=== PATIENT | female | born 1970 | race Caucasian/White ===

== ENCOUNTER → 2018-01-08 09:27 | Outpatient (CLI) | payer OTHER, SELFPAY ==
--- NOTE | 2018-01-08 09:30 | BI_ITS ---
MAMMOGRAPHY - BILATERAL SCREENING REASON FOR EXAM: Female, 47 years old. Routine annual screening examination. PERTINENT HISTORY: Grandmother with breast cancer. Remote left excisional breast biopsy. TECHNIQUE: Digital bilateral breast vu (3D mammographic acquisition) in the CC and MLO projections. 2-D mediolateral oblique (MLO) and craniocaudad (CC) views of both breasts were obtained. CAD: Full Field Digital Mammography with Computer Added Detection was performed. COMPARISON: Comparison is made with prior study dated November 30, 2015 and July 31, 2014. FINDINGS: Breast Composition: There are scattered areas of fibroglandular density. Stable appearance of the architectural distortion and retraction of the left nipple in keeping with prior left excisional breast biopsy. Stable asymmetry of breast tissue were more breast tissue is seen in the right breast as compared to the right side. No other significant abnormalities are identified. There has been no significant change since the prior study. BI/SCREENING MAMM (CAD), BILAT IMPRESSION: Stable bilateral screening mammogram. Yearly follow-up mammogram recommended. (A) ASSESSMENT CATEGORY: BIRADS Category 2: Benign. A letter regarding these results will be sent to the patient by the facility within 30 days. Approximately 10% of breast cancers are not detected by mammography. A normal mammogram should not delay biopsy of a clinically suspicious abnormality. [id number] Electronically Signed: Bernabe Garcia MD at 11:21 EDT Tel [phone], Service support ,
== END ==
PROVIDERS: Family Provider Family Medicine; PCP Family Medicine; Visit Provider Obstetrics & Gynecology
DX: Z12.31 Encounter for screening mammogram for malignant neoplasm of breast (principal)
CPT/HCPCS: 77063; 77067

== ENCOUNTER → 2018-10-01 11:20 | Outpatient (CLI) | payer OTHER, SELFPAY ==
[2018-10-01 13:39] LABS: Hematocrit 45.1 % (37-47); Hemoglobin 14.9 g/dl (12.0-15.0); Mean Corpuscular Hgb 29.9 pg (27.0-32.0); Mean Corpuscular Volume 90.4 fL (81-99); Mean Platelet Vol. 10.4 fl (6.2-12.0); Platelet Count 272 K/mm3 (150-450); RBC Distribution Width CV 13.7 % (11.6-14.6); RBC Distribution Width SD 45.1 fl (35.1-43.9); Red Blood Count 4.99 M/mm3 (4.2-5.4); Scan Indicated on CBC? Y/N NO; White Blood Count 9.7 K/mm3 (4.4-11.0)
[2018-10-01 13:57] LABS: hCG Titer Quant., Serum < 1 mIU/mL (<9 non-preg)
[2018-10-01 14:03] LABS: Follicle Stimulating Hormone 9.1 mIU/mL; Luteinizing Hormone 4.5 mIU/mL; T4 Free Direct 0.89 ng/dL (0.76-1.46); Thyroid Stim Hormone (TSH) 4.97 uIU/mL (0.358-3.74)
== END ==
PROVIDERS: Visit Provider Obstetrics & Gynecology
DX: N93.9 Abnormal uterine and vaginal bleeding, unspecified (principal); N95.0 Postmenopausal bleeding
CPT/HCPCS: 36415; 83001; 83002; 84439; 84443; 84702; 85027

== ENCOUNTER → 2018-10-18 13:28 | Outpatient (CLI) | payer OTHER, SELFPAY ==
--- NOTE | 2018-10-18 11:45 | EMB_PTH ---
PATIENT: KAY SALAZAR LOC: [facility] U#:[id number] AGE/SX: 55/F ROOM: RE10/18/[address]: Dr. Bianca Carrero MD : 1970 BED: DIS: SPEC #: [id number] RECD: 10/18/18 13:19 STATUS: CALISTA PETRA #: [id number] MORA: 10/18/18 11:[address]: Bianca Carrero DEPT: SURGICAL PATHOLOGY RECD BY: Thanh Sultana Tissues: Endometrium, NOS Procedures: Surgery Specimen Level IV HEADER OPERATION: Endometrial biopsy PRE-OP DIAGNOSIS: LMP 09/08; prolonged irregular bleeding TISSUE SUBMITTED: Endometrial biopsy MICROSCOPIC DIAGNOSIS Endometrial biopsy: Simple endometrial hyperplasia without atypia. DIONNE:rene 10/19/18 MICROSCOPIC DESCRIPTION Slides are reviewed. GROSS DESCRIPTION Received in fixative is one container labeled with the patient's name and designated EMB. The specimen consists of multiple irregular fragments of james-pink soft tissue that in aggregate measure 2.5 x 2 x 0.2 cm. The specimen is totally submitted in one cassette. / DIONNE:rene 10/18/18 TC:5 CPT: 98909
== END ==
PROVIDERS: Referring Provider Obstetrics & Gynecology; Visit Provider Obstetrics & Gynecology
DX: N85.00 Endometrial hyperplasia, unspecified (principal)
CPT/HCPCS: 88305

== ENCOUNTER 2019-01-24 07:45 | Day surgery (SDC) | payer OTHER, SELFPAY ==
--- NOTE | 2019-01-21 11:50 | EKG12_ITS ---
Test Reason : PRE OP Blood Pressure : / mmHG Vent. Rate : 076 BPM Atrial Rate : 076 BPM P-R Int : 134 ms QRS Dur : 080 ms QT Int : 370 ms P-R-T Axes : 043 067 025 degrees QTc Int : 416 ms Normal sinus rhythm Normal ECG Confirmed by ANUEL CH, GERARDO ([id number]), business editor STEFF VELAZCO ([id number]) on 01/24/2019 1:32:30 PM Referred By: Gt Bravo Confirmed By:GERARDO AGEE MD
[2019-01-21 12:21] LABS: Hematocrit 43.8 % (37-47); Hemoglobin 14.9 g/dl (12.0-15.0); Mean Corpuscular Hgb 29.7 pg (27.0-32.0); Mean Corpuscular Volume 87.3 fL (81-99); Mean Platelet Vol. 9.9 fl (6.2-12.0); Platelet Count 304 K/mm3 (150-450); RBC Distribution Width CV 13.6 % (11.6-14.6); RBC Distribution Width SD 43.1 fl (35.1-43.9); Red Blood Count 5.02 M/mm3 (4.2-5.4); White Blood Count 10.4 K/mm3 (4.4-11.0)
[2019-01-21 12:23] LABS: Scan Indicated on CBC? Y/N NO
[2019-01-21 12:26] LABS: International Normalized Ratio 1.1; Prothrombin Time (Protime)PT. 13.5 SECONDS (11.7-14.9)
[2019-01-21 12:27] LABS: Partial Thromboplast Time 25.5 Seconds (24.1-36.2)
[2019-01-21 12:53] LABS: Anion Gap 9 (5-15); BUN 16 mg/dL (7-18); BUN/Creat Ratio 16.1 RATIO (10-20); Calcium,Total 9.1 mg/dL (8.5-10.1); Chloride 105 mmol/L (98-107); Creatinine, Serum 0.99 mg/dL (0.55-1.02); EST Glomerular Filtration Rate 64 mL/min (>60); Est Glom Filt Rate - Afr Amer 77 mL/min (>60); Glucose 139 mg/dL (74-106); Potassium 3.3 mmol/L (3.5-5.1); Sodium Level 140 mmol/L (136-145)
[2019-01-21 13:18] LABS: Internal QC Validated? YES +Cl - CLEAR BKGD; Pregnancy, Serum, hCG Quali. NEGATIVE Negative
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
[2019-01-24] VITALS (13 sets, daily range): BP systolic 94–134; BP diastolic 47–107; PULSE 54–78; RESP 15–18; TEMP 36.6–37.2; O2SAT 93–99; BMI 38.2
[2019-01-24 08:38] LABS: Internal QC Validated? YES +Cl - CLEAR BKGD; Pregnancy, Urine Negative Negative
--- NOTE | 2019-01-24 10:05 | HYST_PTH ---
PATIENT: KAY SALAZAR LOC: [facility] [place] U#:[id number] AGE/SX: 48/F ROOM: RE01/24/[address]: Dr. Gt Bravo MD : 1970 BED: DIS: 01/25/2019 SPEC #: [id number] RECD: 01/24/19 16:16 STATUS: CALISTA FLOYDDemarcus #: [id number] MORA: 01/24/19 10:[address]: Gt Bravo DEPT: SURGICAL PATHOLOGY RECD BY: Huan Galeas ENTERED: 01/25/19 09:23 SP TYPE: HYSTERECT OTHR DR: Dr. Rico Romero MD Tissues: Uterus, NOS Procedures: Surgery Specimen Level V HEADER OPERATION: Robotic assisted vaginal hysterectomy, bilateral salpingectomy PRE-OP DIAGNOSIS: Irregular menstruation, simple hyperplasia without atypia on endometrial biopsy TISSUE SUBMITTED: Uterus, cervix, bilateral fallopian tubes MICROSCOPIC DIAGNOSIS Uterus, hysterectomy: Cervix - squamous metaplasia and mild chronic inflammation. 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 Myometrium - leiomyomas and focal superficial adenomatous. Right and left fallopian tubes - no pathologic change. AM:rene 01/26/19 MICROSCOPIC DESCRIPTION Slides are reviewed. GROSS DESCRIPTION Received in fixative is one container labeled with the patient's name and designated uterus, cervix, bilateral fallopian tubes. The specimen consists of a hysterectomy specimen consisting of uterus with cervix and attached bilateral fallopian tubes. The uterus with cervix weighs 152 gm and measures 10 x 7 x 5.5 cm. The serosal surface is focally ragged. The ectocervical mucosa is unremarkable. The external os is circular in contour. The endocervical canal measures 3.5 cm in length and the endocervical mucosa is james, glistening and unremarkable. The endometrial cavity is partially bicornuate and measures 5 cm in length and up to 2.5 cm in width. The endometrium is james, glistening without any mass lesion and measures 0.1 cm in thickness. Sections of the uterine wall reveal two nodular masses, one in the anterior uterine wall measuring 0.3 cm in greatest dimension and one in the posterior uterine wall measuring 1 cm in diameter. Sections of these masses reveal james whorled cut surfaces without areas of hemorrhage, necrosis or cystic degeneration. The uninvolved uterine wall measures up to 2.5 cm in thickness. The right fallopian tube measures 6 cm in length and 0.6 cm in diameter. The fimbrial end is identified. Sections reveal unremarkable cut surfaces. The left fallopian tube is similar appearance to right and measures 6 cm in length and 0.6 cm in diameter. Shank Maker sections are submitted in 12 cassettes as follows: 1 - anterior cervix, 2 - posterior cervix, 3-6 - anterior uterine wall (cassette 6 also contains the smaller nodular mass), 7-10 - posterior uterine wall (cassette 10 contains the larger nodular mass), 11 - right fallopian tube, 12 - left fallopian tube. The entire endometrium is submitted. / DIONNE:rene 01/25/19 TC:1 CPT: 71919
[2019-01-24] MEDS: Ropivacaine 0.5% 30 ML Vial (12:05)
--- NOTE | 2019-01-24 13:27 | PCM.OPRPT ---
Report of Operation Date of Procedure: 01/24/19 Pre-Operative Diagnosis: Menorrhagia, Simple Endometrial Hyperplasia Post-Operative Diagnosis: Menorrhagia, Simple Endometrial Hyperplasia Surgery/Procedure Performed:: Robotic Assisted Vaginal Hysterectomy and Bilateral Salpingectomy Description of Surgical Findings:: 10 cm size uterus with normal-appearing fallopian tubes and ovaries. tea bag packer: Alfred Singh Type of Anesthesia:: General - Endotracheal Anesthesiologist: Emily Gomes Specimen's removed: Uterus and bilateral fallopian tubes Drains: Looney to straight drain Estimated Blood Loss (mL): Minimal Fluids Replaced: Crystalloid Description of Procedure: Surgeon: Gt Bravo MD, FACOG Indication: This is a 48 year old patient who has been having problems with heavy periods and simple hyperplasia. She has a history of prior sections and no vaginal births. Conservative measures have not been helpful. The patient has been counseled regarding the risks, benefits and alternatives of this procedure including the possibility of bleeding, infection, and injury to surrounding structures such as bowel bladder and all questions were answered. Procedure: Pt taken to the operating room where after induction of general anesthesia the patient was prepped and draped in the usual sterile fashion and placed on a non-slip Huggy-u-vac device. Trendendelenburg test was satisfactory. Bladder was drained of urine with a Looney catheter which was left in place. Anterior cervix grasped and cervix was dilated to about 3-4 mm. Uterus sounded to 8 cms. 0-Vicryl suture was placed at the 3:00 and 9:00 position of the cervix. A uterine elevation device was then placed in the uterus to allow uterine manipulation and attention was turned to the laparoscopic portion of the procedure. Ropivocaine 0.5% was injected approximately 2-3 cm superior to the umbilicus and an 8 mm robotic camera port was introduced directly with intraperitoneal placement confirmed with insufflation. 8 mm robotic side ports were introduced under direct visualization approximately 11 cm lateral and 2 cm inferior to the umbilical port. A 5 mm left upper quadrant port was introduced and airseal insufflation with CO2 was started. The above findings were noted. Robot was docked without difficulty and attention turned to the robotic portion of the procedure. Approximately 25 cc of Ropivicaine was used. Bilateral infundibulocal ligaments/mesosalpinx were ligated with 35 turner bipolar coagulation to the level of the round ligament. The posterior aspect of the cervix was identified and then opened for about 1 cm using 25 watt monopolar cautery identifying the V-care device which had been placed vaginally. Bladder flap was opened and divided to the level of the round ligaments using monopolar cautery. Progressive bites were then ligated on each side of the cervix with 35 turner bipolar cautery to the uterine arteries. The anterior vaginal mucosa was then entered and cervix circumscribed with monopolar cautery. Uterus and attached tubes were then removed through the vagina. Vaginal cuff was closed first with 0-Vicryl Vaibhav stitches placed at each angle followed by closure of the mid-cuff with 0-Monocryl V-lock suture in two layers. Pelvis was copiously irrigated with saline and the right ureter was noted to peristalse. Robot was undocked and trocars were removed with as much gas as possible. Incisions were closed with 4-0 Monocryl subcuticular sutures and incisions covered with steri-strips. The patient tolerated the procedure well and was taken to the recovery room in satisfactory condition. Sponge, instruments and needle counts were all correct. There were no apparent complications of the surgery. Cefotan 2 gms IV was given prior to the procedure. Grafts/Implants Used: None - Complications None - Admit VTE Documentation VTE Present on Admission: Yes VTE Mechan Device Prophylaxis: SCD's VTE Pharm Prophylaxis ordered?: Yes
--- NOTE | 2019-01-24 13:35 | DCINST_ITS ---
Discharge Diet: No Restrictions Discharge Activity: Return to Normal Activity, May Not Drive - while taking narcotic pain medications., May Shower May resume sexual activity in: 6-8 weeks Call your doctor if your incision/area has: Continuous Slow Oozing, Sudden Increased Bleeding, Increased Pain/ Swelling, Increased Redness, Foul Smelling Discharge Call your doctor if you observe: Fever of 101 or Higher, Inability to urinate, Inability to have a bowel movement, Using more than one pad per hour Allergies/Adverse Reactions: Allergies meperidine [From Demerol] Adverse Reaction (Verified 01/14/19 13:46) Vomiting Medications to take at Discharge Hydrochlorothiazide [Hctz] 25 mg PO DAILY 01/14/19 Levothyroxine [Synthroid] 50 mcg PO DAILY 01/14/19 Docusate Sodium [Colace] 100 mg PO BID PRN PRN #60 cap 01/24/19 Oxycodone [Oxyir] 5 mg PO Q6H PRN PRN 7 Days #20 tab 01/24/19 The following prescriptions were given: Oxycodone [Oxyir] 5 mg PO Q6H PRN PRN 7 Days #20 tab PRN Reason: Severe Pain (6-06/02) Docusate Sodium [Colace] 100 mg PO BID PRN PRN #60 cap PRN Reason: Constipation Orders to be completed after discharge: 12 Lead EKG [[facility]] Time Frame: 01/14/19, Facility: [facility], Location: Cardiovascular Services Basic Metabolic Profile (BMP) Time Frame: 01/14/19, Location: Laboratory CBC-Complete Blood Cnt No Diff Time Frame: 01/14/19, Location: Laboratory Thyroid Stim Hormone (TSH) Time Frame: 01/14/19, Location: Laboratory Primary Care Physician: Rico Romero MD [Primary Care Provider] - Test Results: Test results from this visit will be discussed in further detail at your follow- up appointment, if applicable.
[2019-01-24] MEDS: Dextrose 5%-Lactated Ringers 1,000 ML 150 ML IV ×2 (16:46→22:34)
[2019-01-24] MEDS: Enoxaparin 30 MG/0.3 ML Syringe SC (17:43)
[2019-01-24] MEDS: Acetaminophen 500 MG Tablet 1000 MG PO (17:43)
[2019-01-24] MEDS: Ketorolac 30 MG/ML Syringe IV (20:23)
[2019-01-25] MEDS: 0.9% NaCl Peripheral Flush Adult/Peds IV (02:01)
[2019-01-25] MEDS: Ketorolac 30 MG/ML Syringe IV (02:02)
--- NOTE | 2019-01-25 02:16 | NURSING ---
pt had been c/o discomfort with catheter since start of shift. adequate output and oral intake. discussed potential of having to re cath if pt unable to void. pt verbalizes understanding and wishes to have catheter removed.
[2019-01-25 02:30] VITALS: BP 139/60; PULSE 64; RESP 14; TEMP 37.3; O2SAT 98
[2019-01-25 06:03] LABS: Hematocrit 37.3 % (37-47); Hemoglobin 12.6 g/dl (12.0-15.0); Mean Corp Hgb Conc 33.8 g/gl (32-36); Mean Corpuscular Hgb 29.4 pg (27.0-32.0); Mean Corpuscular Volume 86.9 fL (81-99); Mean Platelet Vol. 10.2 fl (6.2-12.0); Platelet Count 275 K/mm3 (150-450); RBC Distribution Width CV 13.6 % (11.6-14.6); RBC Distribution Width SD 42.1 fl (35.1-43.9); Red Blood Count 4.29 M/mm3 (4.2-5.4); White Blood Count 19.1 K/mm3 (4.4-11.0)
[2019-01-25 06:07] LABS: Scan Indicated on CBC? Y/N NO
[2019-01-25 06:11] LABS: Creatinine, Serum 0.96 mg/dL (0.55-1.02); EST Glomerular Filtration Rate 66 mL/min (>60); Est Glom Filt Rate - Afr Amer 80 mL/min (>60); Estimated Creatinine Clearance 63.23 ml/min
[2019-01-25] MEDS: Levothyroxine 50 MCG Tablet PO (06:48)
[2019-01-25 08:11] VITALS: BP 111/70; PULSE 59; RESP 16; TEMP 36.8; O2SAT 98
[2019-01-25] MEDS: Ketorolac 10 MG Tablet PO (08:14)
[2019-01-25] MEDS: hydroCHLOROthiazide 25 MG Tablet PO (08:15)
--- NOTE | 2019-01-25 08:28 | PCM.PN.OB ---
Subjective: Patient without complaints. Tolerating diet well. Able to void on own. Pain well controlled. Positive flatus. Ready to go home today. - Physical Exam Vital Signs Temp Pulse Resp BP Pulse Ox 98.3 F 59 L 16 111/70 98 01/25/19 08:11 01/25/19 08:11 01/25/19 08:11 01/25/19 08:11 01/25/19 08:11 Oxygen Delivery Method Room Air Weight: 222 lb 10.67 oz Body Mass Index (BMI) 38.2 Intake and Output for Last 24 Hours 01/23/19 01/24/19 01/25/19 23:59 23:59 23:59 Intake Total 4387 / 4387 1952 / 195 Output Total 280 / 280 1500 / 1500 Balance 4107 / 4107 453 / 453 Laboratory Tests Past 24 Hrs 01/24/19 01/25/19 01/25/19 08:01 05:30 05:30 WBC 19.1 H RBC 4.29 Hgb 12.6 Hct 37.3 MCV 86.9 MCH 29.4 MCHC 33.8 RDW 13.6 RDW Differential 42.1 Plt Count 275 MPV 10.2 Creatinine 0.96 Estim Creat Clear Calc 63.23 Est GFR (MDRD) Af Amer 80 Est GFR (MDRD) Non-Af 66 Urine Test Negative Wounds are clean, dry, intact. Good urine output. Hemoglobin okay. No evidence of infection. Medical Necessity - Tobacco Use Smoking Status: Current every day smoker Tobacco Use: Cigarettes Assessment/Plan Doing well postoperative day #1 status post robotic assisted vaginal hysterectomy and bilateral salpingectomy. Will release to home with routine instructions.
--- NOTE | 2019-01-25 09:44 | NURSING ---
SCOP patch removed from ear @ this time
== END 2019-01-25 11:13 | disposition home or self-care (01) ==
LOC: SDC 07:46 → AC 07:46 → MS2 10:52
PROVIDERS: Family Provider Family Medicine; PCP Family Medicine; Referring Provider Obstetrics & Gynecology; Visit Provider Obstetrics & Gynecology
PROC: 0UT90ZZ Resection of Uterus, Open Approach (ICD-10-PCS; CPT 58552; principal; 2019-01-24 09:45)
DX: N85.01 Benign endometrial hyperplasia (principal); D25.9 Leiomyoma of uterus, unspecified; N87.9 Dysplasia of cervix uteri, unspecified; Q51.3 Bicornate uterus; N72 Inflammatory disease of cervix uteri; E06.9 Thyroiditis, unspecified; I10 Essential (primary) hypertension; F17.200 Nicotine dependence, unspecified, uncomplicated; Z79.899 Other long term (current) drug therapy
CPT/HCPCS: 58552; 36415; 80048; 81025; 82565; 84443; 84703; 85027; 85610; 85730; 86850; 86900; 88307; 93005; 99406; J7120; A4216; J2405

== ENCOUNTER → 2019-03-18 | Outpatient (CLI) | payer OTHER, SELFPAY ==
[2019-01-24 15:59] VITALS: BMI 38.2
--- NOTE | 2019-03-18 12:28 | BI_ITS ---
MAMMOGRAPHY - BILATERAL SCREENING 3-D TOMOSYNTHESIS REASON FOR EXAM: Female, 48 years old. Bilateral Screening 3-D tomosynthesis PERTINENT HISTORY: Grandmother with breast cancer. Previous excisional biopsy. TECHNIQUE: 2-D mammograms and 3-D Tomosynthesis of the breast (s) were performed. CAD was performed. COMPARISON: 01/08/2018 FINDINGS: The breast composition is composed of scattered fibroglandular density. Scattered benign calcifications are seen. No dense spiculated masses or suspicious microcalcifications are identified. Stable architectural distortion in the left breast from previous biopsy. There has been no significant change since the prior study. BI/SCREEN MAMM (CAD) W/MATTEO BILAT IMPRESSION: No mammographic signs of malignancy. Routine yearly mammograms recommended. ASSESSMENT CATEGORY: BIRADS Category 2: Benign. A letter regarding these results will be sent to the patient by the facility within 30 days. FOLLOW UP RECOMMENDATION: Yearly follow up mammogram recommended. (A) Approximately 10% of breast cancers are not detected by mammography. A normal mammogram should not delay biopsy of a clinically suspicious abnormality. Electronically Signed: Min Lopez MD at 13:21 EDT , Service support ,
== END | disposition home or self-care (01) ==
LOC: OPBI 12:27
PROVIDERS: Family Provider Family Medicine; PCP Family Medicine; Referring Provider Obstetrics & Gynecology; Visit Provider Obstetrics & Gynecology
DX: Z12.31 Encounter for screening mammogram for malignant neoplasm of breast (principal)
CPT/HCPCS: 77063; 77067

== ENCOUNTER → 2022-05-19 | Outpatient (CLI) | payer OTHER, SELFPAY ==
--- NOTE | 2022-05-19 13:19 | BI_ITS ---
MAMMOGRAPHY - BILATERAL SCREENING REASON FOR EXAM: Female, 51 years old. Routine annual screening examination. PERTINENT HISTORY: Grandmother with breast cancer. Remote left excisional breast biopsy. Chronic left nipple inversion. TECHNIQUE: Digital bilateral breast matteo (3D mammographic acquisition) in the CC and MLO projections. 2-D mediolateral oblique (MLO) and craniocaudad (CC) views of both breasts were obtained. CAD: Full Field Digital Mammography with Computer Added Detection was performed. COMPARISON: Comparison is made with prior study dated 03/18/2019 and 01/08/2018. FINDINGS: Breast Composition: The breasts are heterogeneously dense, which may obscure small masses. There are no dominant masses or suspicious calcifications. Stable architectural distortion in the deep inferior medial aspect of the left breast with stable retraction of the left nipple. No other significant abnormalities are identified. There has been no significant change since the prior study. BI/SCRN MAMM (CAD)W/MATTEO BILAT IMPRESSION: Stable bilateral screening mammogram. Yearly follow-up mammogram recommended. (A) ASSESSMENT CATEGORY: BIRADS Category 2: Benign. A letter regarding these results will be sent to the patient by the facility within 30 days. Approximately 10% of breast cancers are not detected by mammography. A normal mammogram should not delay biopsy of a clinically suspicious abnormality. [id number] Electronically Signed: Bernabe Garcia MD at 14:07 EDT ,
== END | disposition home or self-care (01) ==
LOC: OPBI 13:17
PROVIDERS: PCP Family Medicine; Visit Provider Student in an Organized Health Care Education/Training Program
DX: Z12.31 Encounter for screening mammogram for malignant neoplasm of breast (principal)
CPT/HCPCS: 77063; 77067

== ENCOUNTER → 2024-07-19 | Outpatient (CLI) | payer OTHER, SELFPAY ==
--- NOTE | 2024-07-19 13:43 | BI_ITS ---
MAMMOGRAPHY - BILATERAL SCREENING 3-D TOMOSYNTHESIS REASON FOR EXAM: Female, 54 years old. SCREENING - FAM HX OF MAT GRANDMOTHER @ AGE 77 - LT EXC BX 2004 PERTINENT HISTORY: No significant family history. TECHNIQUE: 2-D mammograms and 3-D Tomosynthesis of the breast (s) were performed. CAD was performed. COMPARISON: 05/19/2022 FINDINGS: The breast composition is heterogeneously dense that can obscure small breast masses. Scattered benign calcifications are seen. 1 cm oval vertical density mass in the lower inner quadrant right breast at mid depth and focal compression views recommended for further evaluation. No dominant mass left breast. No suspicious calcifications.. No architectural distortion is identified. There is no skin thickening or retraction. No change in lumpectomy changes and scarring in the retroareolar left breast. BI/SCRN MAMM (CAD)W/MATTEO BILAT IMPRESSION: Further imaging evaluation is recommended. ASSESSMENT CATEGORY: BIRADS Category 0: Incomplete. Need additional imaging evaluation as above. A letter regarding these results will be sent to the patient by the facility within 30 days. FOLLOW UP RECOMMENDATION: Additional imaging recommended as above. (E) Approximately 10% of breast cancers are not detected by mammography. A normal mammogram should not delay biopsy of a clinically suspicious abnormality. Electronically Signed: Austen White MD at 14:49 EST ,
== END | disposition home or self-care (01) ==
LOC: OPBI 13:42
PROVIDERS: PCP Family Medicine; Referring Provider Advanced Practice Midwife; Visit Provider Advanced Practice Midwife
DX: Z01.411 Encounter for gynecological examination (general) (routine) with abnormal findings (principal); Z12.31 Encounter for screening mammogram for malignant neoplasm of breast; R92.30 Dense breasts, unspecified
CPT/HCPCS: 77063; 77067

== ENCOUNTER → 2024-07-28 | Outpatient (CLI) | payer OTHER, SELFPAY ==
--- NOTE | 2024-07-28 14:32 | BI_ITS ---
MAMMOGRAPHY - UNILATERAL DIAGNOSTIC: RIGHT BREAST REASON FOR EXAM: Female, 54 years old. Abnormal screening mammogram. PERTINENT HISTORY: Non-contributory. TECHNIQUE: Compression views of the right breast were obtained in the craniocaudad and mediolateral oblique projections. 90 degree lateral view was obtained as well. CAD: Full Field Digital Mammography with Computer Added Detection was performed. COMPARISON: Comparison is made with prior study dated July 19, 2024. FINDINGS: Breast Composition: The breasts are heterogeneously dense, which may obscure small masses. The previously seen 1 cm oval density in the lower inner quadrant of the right breast is faintly seen. Correlation with ultrasound recommended. No other significant abnormalities are identified. BI/DIAG MAMM W/CAD, UNILAT IMPRESSION: Faint 1 cm oval density in the lower inner quadrant of the right breast. Correlation with ultrasound recommended. ASSESSMENT CATEGORY: BIRADS Category 0: Incomplete. Need additional imaging evaluation. A letter regarding these results will be sent to the patient by the facility within 30 days. Approximately 10% of breast cancers are not detected by mammography. A normal mammogram should not delay biopsy of a clinically suspicious abnormality. Electronically Signed: Bernabe Garcia MD at 15:17 EST ,
--- NOTE | 2024-07-28 14:32 | US_ITS ---
STUDY: ULTRASOUND BREAST - RIGHT REASON FOR EXAM: Female, 54 years old. Abnormal screening mammogram. TECHNIQUE: Axial and longitudinal images of the RIGHT breast were performed with a high resolution ultrasound transducer. # OF IMAGES: 26 COMPARISON: Comparison is made with prior mammogram done earlier in the day as well as prior mammogram dated July 19, 2024. FINDINGS: RIGHT Breast: The lower inner quadrant of the right breast was examined with ultrasound. There is an 8 mm x 9 mm high 8mm septated cyst at the 3:00 position of the breast at 8 cm from the nipple. Aspiration recommended. US/Breast Limited Unilateral IMPRESSION: 8 mm x 9 mm x 8 mm complex cyst at the 3:00 position of the breast at 8 cm from the nipple. Aspiration recommended. ASSESSMENT CATEGORY: BIRADS Category 4: Suspicious - Biopsy Should Be Considered. A letter regarding these results will be sent to the patient by the facility within 30 days. Electronically Signed: Bernabe Garcia MD at 9:00 EST ,
== END | disposition home or self-care (01) ==
PROVIDERS: PCP Family Medicine; Referring Provider Advanced Practice Midwife; Visit Provider Advanced Practice Midwife
DX: R92.341 Mammographic extreme density, right breast (principal)
CPT/HCPCS: 76642; 77065